=== PATIENT | female | born 1945 | race Caucasian/White ===

== ENCOUNTER 2017-12-08 06:43 | Day surgery (SDC) | payer MEDICARE ==
[2017-12-05 11:01] VITALS: BMI 32.3
[2017-12-08 07:56] LABS: Hemoglobin 15.1 g/dL (12.0-16.0)
[2017-12-08 08:17] LABS: Anion Gap 10 mmol/L (10-20); BUN (Urea Nitrogen) 19 mg/dL (9.8-20.1); Calc. Creatinine Clearance 57 mL/min (70-130); Calcium 11.3 mg/dL (7.8-10.44); Carbon Dioxide 27 mmol/L (23-31); Chloride 106 mmol/L (98-107); Estimated GFR-MDRD 54; Glucose 103 mg/dL (83-110); Potassium 3.7 mmol/L (3.5-5.1); Sodium 139 mmol/L (136-145)
[2017-12-08] MEDS ORDERED: Midazolam HCl 2 mg/2 ml Vial ONE (09:08)
[2017-12-08] MEDS ORDERED: Fentanyl 100 MCG/2 ML VIAL ONE ×2 (09:08)
[2017-12-08] MEDS ORDERED: Lidocaine 1% w/Epinephrine 1:200K 30 ML VIAL ONE (09:13)
[2017-12-08] MEDS ORDERED: Bupivacaine 0.25% HCL 30 ML VIAL ONE (09:13)
[2017-12-08] MEDS ORDERED: Sodium Chloride 0.9% 10 ML ONE (09:14)
[2017-12-08] MEDS ORDERED: Bacitracin Zinc Ointment 30 gm TUBE ONE (09:14)
[2017-12-08] MEDS ORDERED: Gelfilm 1 EA Packet ONE (09:26)
[2017-12-08] MEDS ORDERED: EPINEPHrine 1 MG/ML AMP ONE (09:28)
[2017-12-08] MEDS ORDERED: Propofol 200 MG/20 ML VIAL ONE (11:54)
[2017-12-08] MEDS ORDERED: ePHEDrine/0.9% NaCl/PF SYRINGE 50 mg/10 ml ONE (11:54)
[2017-12-08] MEDS ORDERED: Dexamethasone 20 MG/5 ML VIAL ONE (11:54)
[2017-12-08] MEDS ORDERED: Ondansetron HCl/PF 4 MG/2 ML Vial ONE (11:54)
[2017-12-08] MEDS ORDERED: Lidocaine 1% PF 5 ML VIAL ONE (11:54)
[2017-12-08] MEDS ORDERED: Glycopyrrolate 0.2 MG/ML 5 ML SYRINGE ONE (11:54)
--- NOTE | 2017-12-08 15:43 | OP ---
DATE OF PROCEDURE: 12/08/2017 PREOPERATIVE DIAGNOSIS: Left conductive hearing loss. POSTOPERATIVE DIAGNOSIS: Left conductive hearing loss. PROCEDURES: 1. Left tympanoplasty underlay procedure. 2. Stapes mobilization procedure. 3. Microscopic surgical procedure. SURGEON: Khadar Bell M.D. ANESTHESIA: General. COMPLICATIONS: None. ESTIMATED BLOOD LOSS: None. SPECIMENS: None. : None. DISPOSITION: Stable to recovery room. SUMMARY: Transcanal exploration. We did mobilize the stapes from adhesions, not otosclerosis. A sm all tear in the TM at about the 3 o'clock position was repaired with underlay graft. Chorda tympani nerve intact, unmolested. Since not otosclerosis, unsure the degree of how much it will improve the hearing. PROCEDURE IN DETAIL: 1. Left tympanoplasty: After informed consent was obtained, the patient was taken to the operating room and placed in the supine position. General endotracheal anesthetic was administered. Table was rotated 180 degrees. Left ear was injected postauricular and transcanal with 1% lidocaine with epin ephrine. Left ear draped and prepped in the sterile fashion and irrigated with copious amounts of sa line. Tympanomeatal flap was elevated at 12 and 6 o'clock position down to the middle ear space wher e significant adhesions around the ossicles were removed which did give more flexibility. There were adhesions over the round window which were carefully dissected off and originally there was not a li ght reflex. Once we dissected the tissue off of the ossicles and from around the round window, we di d get a round window reflex, although the thickness around the round window was more than just the no rmal thin round window membrane. 2. Microscopic surgical procedure: Throughout the entirety of the operation, a microscope was used as integral part of the procedure using 2 to 14 power and high illumination. 3. With the ossicles mobilized and a good round light window reflex present, where one had not been, the flap was then placed back down, and fascia was used, which had been harvested from the inc ision, placed in an underlay technique with good coverage. Gelfoam was placed laterally to this as w ell. The patient tolerated this procedure well and was turned over to Anesthesia in a stable condition.
== END 2017-12-08 13:00 | disposition home or self-care (01) ==
LOC: SDC 06:43
PROVIDERS: ATTEND Otolaryngology Otology & Neurotology
PROC: 09R807Z Replacement of Left Tympanic Membrane with Autologous Tissue Substitute, Open Approach (ICD-10-PCS; principal; 2017-12-08)
DX: H90.2 Conductive hearing loss, unspecified (principal); I10 Essential (primary) hypertension; E03.9 Hypothyroidism, unspecified; Z79.899 Other long term (current) drug therapy; Z98.890 Other specified postprocedural states; Z87.19 Personal history of other diseases of the digestive system; Z87.891 Personal history of nicotine dependence
CPT/HCPCS: 80048; 85014; 85018; 93005; 93010; A4216; J0171; J1100; J2001; J2250; J2405; J2704; J3010; J3490; S0020